=== PATIENT | male | born 1975 | race Caucasian/White ===

== ENCOUNTER 2016-12-07 19:34 | Emergency (ER) | payer MEDICAID, OTHER ==
[~2016-12-07] VITALS: Ht 182.9 cm; Wt 91.6 kg
[2016-12-07 19:58] VITALS: BP 157/100
[2016-12-07 20:17] VITALS: BP 157/100
--- NOTE | 2016-12-10 21:34 | Emergency Room Report ---
History of Present Illness General Chief Complaint: General Complaint Source: Patient Present Illness HPI 40-year-old male presents ED for evaluation. Patient states that he has a infection in his lower back due to a back surgery many years ago. Patient was being treated at [facility] for the last one month with IV antibiotics. Patient states that yesterday he left AMA because the doctor was planning to send him to an infusion center and was too far away and he got upset and left. Patient states he is here today to get admitted and be sent to a rehabilitation facility. Patient denies any fevers or chills. States pain is sharp, 7/10, nonradiating. States the pain is at his baseline. No other aggravating or relieving factors. Denies any other associated symptoms Allergies: Coded Allergies: No Known Allergies (Verified Allergy, Mild, 04/11/07) Patient History Past Medical History: psych hx Past Surgical History: none Pertinent Family History: none Social History: Denies: smoking, alcohol use, drug use Immunizations: UTD Reviewed Nursing Documentation: PMH: Agreed, PSxH: Agreed Nursing Documentation-PMH Hx Cardiac Problems: No - titanium sergey,fusion surgery Hx Hypertension: Yes History Of Psychiatric Problem: Yes - depression, anxiety Review of Systems All Other Systems: negative except mentioned in HPI Physical Exam Vital Signs Date Time Temp Pulse Resp B/P (MAP) Pulse Ox O2 Delivery O2 Flow Rate FiO2 12/07/16 19:44 98.6 108 18 157/100 97 Room Air Sp02 EP Interpretation: reviewed, normal General Appearance: no apparent distress, alert, GCS 15, non-toxic Head: normocephalic, atraumatic Eyes: bilateral eye normal inspection, bilateral eye PERRL ENT: hearing grossly normal, normal pharynx, no angioedema, normal voice Neck: full range of motion, supple/symm/no masses Respiratory: chest non-tender, lungs clear, normal breath sounds, speaking full sentences Cardiovascular #1: regular rate, rhythm, no edema Cardiovascular #2: 2+ carotid (R), 2+ carotid (L), 2+ radial (R), 2+ radial (L) , 2+ dorsalis pedis (R), 2+ dorsalis pedis (L) Gastrointestinal: normal bowel sounds, non tender, soft, non-distended, no guarding, no rebound Rectal: deferred Genitourinary: normal inspection, no CVA tenderness Musculoskeletal: back normal, gait/station normal, normal range of motion, non- tender Neurologic: alert, oriented x3, responsive, motor strength/tone normal, sensory intact, speech normal Psychiatric: judgement/insight normal, memory normal, mood/affect normal, no suicidal/homicidal ideation Reflexes: 3+ bicep (R), 3+ bicep (L), 3+ tricep (R), 3+ tricep (L), 3+ knee (R) , 3+ knee (L) Skin: normal color, no rash, warm/dry, well hydrated Lymphatic: no adenopathy Medical Decision Making Diagnostic Impression: Primary Impression: Back pain Qualified Codes: M54.5 - Low back pain; G89.29 - Other chronic pain Additional Impression: Encounter for generalized patient complaints ER Course 40-year-old male presents to ED to be admitted for IV antibiotics. Recently treated for infection in his back Patient placed on stretcher. After initial history, physical exam reveals a male in no acute distress. Patient has no palpable vertebral pain, no signs of swelling or induration suggestive of epidural abscess. 5 out of 5 motor strength in bilateral lower extremities. No bowel or bladder incontinence. I explained to the patient that I am not certain at this point what his disposition would be. I am not sure whether he would be admitted to the hospital or since his into rehabilitation facility. I explained to the patient really way to know for sure is to start with lab work, and the admission process. Patient then considered that he may be better off at [facility] since his entire workup was completed there. I explained to patient I'm happy to facilitate this process for him but he would need to start with the admission process. I also told the patient that I am not sure if he would be transferred or not Patient states that he would rather go back to [facility] and discuss his options with them. Patient has no fever, no focal neurological deficits and has been treated with antibiotics for nearly one month now. I believe patient can be safely discharged at this time with the understanding that he will return to [facility] to discuss his options diagnosis - back pain, encounter for generalized complaint Stable and discharged to home. Followup with PMD. Return to ED if symptoms recur or worsen Last Vital Signs Date Time Temp Pulse Resp B/P (MAP) Pulse Ox O2 Delivery O2 Flow Rate FiO2 12/07/16 20:17 98.6 108 18 157/100 97 Room Air Status: improved Disposition: HOME, SELF-CARE Condition: Stable Patient Instructions: Back Pain, Adult, [id number] ALVARADO CARTER M.D. Dec 10, 2016 21:34
== END 2016-12-07 20:17 | disposition home or self-care (01) ==
LOC: EMR 19:57
DX: M54.5 Low back pain (principal); G89.29 Other chronic pain; F41.9 Anxiety disorder, unspecified; F32.9 Major depressive disorder, single episode, unspecified; I10 Essential (primary) hypertension
CPT/HCPCS: 99282

== ENCOUNTER 2017-09-01 22:30 | Emergency (ER) | payer OTHER ==
[~2017-09-01] VITALS: Ht 182.9 cm; Wt 90.7 kg
[2017-09-01] MEDS ORDERED: AMLODIPINE BESYL5 MG ORAL (22:42)
[2017-09-01] MEDS ORDERED: PAXIL10 MG ORAL (22:42)
[2017-09-01] MEDS ORDERED: METHADONE HCL10 MG PO (22:42)
[2017-09-01 22:52] VITALS: BP 150/96
[2017-09-01 23:30] VITALS: BP 150/96
--- NOTE | 2017-09-01 23:30 | Emergency Room Report ---
History of Present Illness General Chief Complaint: General Complaint Source: Patient Present Illness HPI 41-year-old male presents with a request for wound check, he has chronic wounds on bilateral forearms, and his mother thought that he should get him checked out. He reports he has a primary doctor is been 27 wound care but is only intermittently compliant. He admits to smoking cigarettes, and he reports he got the wounds many years ago from IV drug use, and he does not feel like they look any worse but his mom suggest to come get checked out. Any fevers, chills , redness, abnormal odor, he reports they have the same size as they usually are , he reports no increasing pain, no redness around it, no other complaints at all. He just came at the insistence of his mother and he wanted to have a medical expert take a look at it. Allergies: Coded Allergies: No Known Allergies (Verified Allergy, Mild, 04/11/07) Patient History Past Medical History: see triage record Reviewed Nursing Documentation: PMH: Agreed; PSxH: Agreed Nursing Documentation-PMH Hx Cardiac Problems: No - titanium sergey,fusion surgery Hx Hypertension: Yes Review of Systems All Other Systems: negative except mentioned in HPI Physical Exam Vital Signs Date Time Temp Pulse Resp B/P (MAP) Pulse Ox O2 Delivery O2 Flow Rate FiO2 09/01/17 22:37 98.0 108 14 150/96 96 Room Air 98.1 Sp02 EP Interpretation: reviewed, normal General Appearance: no apparent distress, alert, non-toxic Head: normocephalic Eyes: bilateral eye normal inspection, bilateral eye PERRL, bilateral eye EOMI ENT: normal ENT inspection, hearing grossly normal, normal pharynx, no angioedema, normal voice, moist mucus membranes Neck: normal inspection, full range of motion, supple, supple/symm/no masses Respiratory: chest non-tender, lungs clear, normal breath sounds, chest symmetrical, palpation of chest normal Cardiovascular #1: normal peripheral pulses, regular rate, rhythm Cardiovascular #2: 2+ radial (R), 2+ radial (L) Gastrointestinal: normal inspection, non tender, soft, no mass, no guarding, no rebound Rectal: deferred Genitourinary: normal inspection, no CVA tenderness Musculoskeletal: back normal, gait/station normal, normal range of motion, non- tender, no calf tenderness Neurologic: alert, responsive, radiology receptionist III-XII nml as tested, motor strength/tone normal, sensory intact, speech normal Psychiatric: judgement/insight normal, memory normal, mood/affect normal, no suicidal/homicidal ideation Skin: normal color, no rash, warm/dry, normal turgor, other - 1 poorly healing wound on each forearm, ulnar aspect, linear, roughly 5-8 cm x 2-3 cm Lymphatic: no adenopathy Medical Decision Making Diagnostic Impression: Primary Impression: Chronic wound of extremity ER Course Patient decided to leave AGAINST MEDICAL ADVICE suddenly, as he had a family emergency he needed to tend to. I did not have strong suspicion for acute infection, but I did want basic labs before he left, but he was unable to wait. He is very pleasant, and requested if he could just come back, I reported yes he could and should just come back as soon as he can. And also that he get a follow-up with his primary care doctor and be compliant with wound care. He normally uses IV drugs, but he does still smoke cigarettes, I did risk reduction counselor him on stopping that. Did but reported take some time. Last Vital Signs Date Time Temp Pulse Resp B/P (MAP) Pulse Ox O2 Delivery O2 Flow Rate FiO2 09/01/17 22:52 98.1 14 150/96 96 Room Air 98.1 09/01/17 22:37 108 Disposition: AGAINST MEDICAL ADVICE Referrals: [facility],REFERRING (PCP) MARVA COSTA M.D Sep 01, 2017 23:30
== END 2017-09-01 23:30 | disposition left against medical advice (07) ==
LOC: EMR 22:53
DX: Z48.00 Encounter for change or removal of nonsurgical wound dressing (principal); S51.802D Unspecified open wound of left forearm, subsequent encounter; S51.801D Unspecified open wound of right forearm, subsequent encounter; X58.XXXD Exposure to other specified factors, subsequent encounter; I10 Essential (primary) hypertension
CPT/HCPCS: 99281